=== PATIENT | male | born 1965 | race African-American/Black ===

== ENCOUNTER 2017-06-18 05:40 | Observation (INO) | payer BC ==
[2017-06-14 09:57] LABS: BASOPHILS 0.5 %; BASOPHILS ABSOLUTE 0.04 10/3/uL (0.0-0.16); EOSINOPHILS 0.9 %; EOSINOPHILS ABSOLUTE 0.07 10/3/uL (0.0-0.53); HEMATOCRIT 41.5 % (40.0-51.0); HEMOGLOBIN 13.8 g/dL (13.6-17.8); IMMATURE GRANULOCYTES 0.1 %; IMMATURE GRANULOCYTES ABSOLUTE 0.01 10/3/uL (0.0-0.11); LYMPHOCYTES 28.2 %; LYMPHOCYTES ABSOLUTE 2.17 10/3/uL (0.67-4.30); MANUAL DIFF NO %; MEAN CORPUS HGB CONC 33.3 g/dL (32.0-36.0); MEAN CORPUSCULAR HEMOGLOB 27.8 pg (26.0-34.0); MEAN CORPUSCULAR VOLUME 83.7 fL (80-100); MEAN PLATELET VOLUME 11.9 fL (9.2-13.0); MONOCYTES 6.9 %; MONOCYTES ABSOLUTE 0.53 10/3/uL (0.21-1.20); NEUTROPHILS 63.4 %; NEUTROPHILS ABSOLUTE 4.88 10/3/uL (2.02-8.40); PLATELET COUNT 181 10/3/uL (150-400); RBC DISTRIBUTION WIDTH 14.2 % (12.0-16.0); RED CELL COUNT 4.96 10/6/uL (4.7-6.1); WHITE BLOOD CELLS 7.7 10/3/uL (4.5-10.5)
[2017-06-14 10:20] LABS: A/G RATIO 1.2 (0.7-1.9); ALBUMIN 3.8 G/DL (3.5-5.0); ALKALINE PHOSPHATASE 51 U/L (45-117); BUN (BLOOD UREA NITROGEN) 11 MG/DL (6-23); CALCIUM, SERUM 9.6 MG/DL (8.5-10.4); CHLORIDE, SERUM 107 MMOL/L (96-112); CO2 (CARBON DIOXIDE) 33 MMOL/L (24-34); CREATININE 1.49 MG/DL (0.70-1.30); GFR AFRICAN AMERICAN 62 ML/MIN (>=60); GFR NON AFRICAN AMERICAN 53 ML/MIN (>=60); GLOBULIN 3.1 G/DL (2.5-4.1); GLUCOSE, SERUM 97 MG/DL (60-99); POTASSIUM, SERUM 3.7 MMOL/L (3.5-5.3); SGOT(AST) 11 U/L (5-40); SGPT(ALT) 29 U/L (5-65); SODIUM, SERUM 144 MMOL/L (135-148); TOTAL BILIRUBIN 0.3 MG/DL (0-1.2); TOTAL PROTEIN 6.9 G/DL (6.0-8.5)
[~2017-06-18] VITALS: Ht 185.4 cm; Wt 113.0 kg
--- NOTE | ~2017-06-18 | OP ---
Record Of Operation [facility] [address] [place]. [address] NAME: ANOOP HANEY JR : 63 STATUS : ADM Avril PAT#: [id number] AGE: 51 ADM/REG DATE : 06/18/17 MR#: [id number] REPORT SERV DATE: 06/18/17 DICTATED BY: DEMIAN SUAREZ DATE: 06/18/17 REPORT STATUS : Draft TRANSCRIBED BY: MODL DATE: 06/18/17 DATE OF PROCEDURE: 06/18/2017 PREOPERATIVE DIAGNOSIS: Achalasia. POSTOPERATIVE DIAGNOSIS: Achalasia. PROCEDURE: Laparoscopic Heller cardioesophageal myotomy, Ki anterior partial fundoplication, and esophagogastroscopy. RESIDENT SURGEONS: 1. Deric Bolanos MD. 2. Lise Nelson MD. ANESTHESIA: General. ESTIMATED BLOOD LOSS: 20 mL. DETAILS OF PROCEDURE: The patient arrived in the operating suite and was placed on the table in the supine position. General anesthesia obtained via an endotracheal tube. The patient was placed in modified lithotomy. The abdomen was prepped and draped in a sterile manner. 0.5% Marcaine with epinephrine was infiltrated over the supraumbilical left rectus muscle where a small incision was performed. A 10 mm blunt trocar was inserted under laparoscopic visualization. The peritoneal cavity insufflated with CO2 gas to 15 mmHg pressure. The patient was placed in reverse Trendelenburg. Additional trocars were inserted under laparoscopic visualization using blunt technique in the bilateral anterior axillary lines, left subxiphoid, right paramedian regions. The lateral segment of the left lobe of the liver was retracted anteriorly. Instruments were introduced. Dissection proceeded along the gastrohepatic omentum with the Harmonic dennis. The peritoneum along the medial edge of the right joce anteriorly was incised with the Harmonic dennis and extended across the esophageal hiatus anteriorly. There was no evidence of hiatal hernia. Dissection proceeded only from a 3 o'clock to 9 o'clock position anteriorly. No posterior dissection was undertaken. Once adequate dissection had been performed at the hiatus, attention was then turned to the greater curvature of the stomach. The gastrosplenic ligament and short gastric vessels contained therein were divided with the Harmonic dennis allowing the medial edge anteriorly of the joce on the left to be dissected. Again, no posterior dissection was performed. The anterior vagus nerve was then identified, encircled with a vessel loop, and retracted to the right. Dissection then proceeded using blunt dissection in the distal esophagus just above the GE junction bluntly and with the Harmonic dennis gaining access to the submucosal plane. The gastroscope was then introduced. There was no debris within the esophagus and no abnormality within the stomach. Fluid and air were then suctioned from the stomach. Using transillumination with the scope, submucosal dissection proceeded with Harmonic dennis cephalad for several centimeters and then with hook cautery distally onto the cardia of the stomach until the scope would pass without any effort whatsoever. The scope was then left in place and turned off. Partial anterior fundoplication was performed after the vessel loop was removed from the vagus nerve wrapping the fundus to the anterior Record Of Operation [address] [place]. [address] NAME: ANOOP HANEY JR : 63 STATUS : ADM Avril PAT#: [id number] AGE: 51 ADM/REG DATE : 06/18/17 MR#: [id number] REPORT SERV DATE: 06/18/17 DICTATED BY: DEMIAN SUAREZ DATE: 06/18/17 REPORT STATUS : Draft TRANSCRIBED BY: GERMAIN DATE: 06/18/17 right joce. Scope was then turned back on, and there was no twisting or any resistance in passing the scope from the distal esophagus into the stomach. The scope was then withdrawn. The liver retractor was removed. Trocars removed under laparoscopic visualization to ensure no bleeding. The peritoneal cavity desufflated. Skin closure performed at all sites with subcuticular 4-0 Monocryl. Sterile dressing applied, and the patient was awakened, extubated, and taken to PACU. /GERMAIN Demian Suarez M.D. / [id number] CC: Demian Suarez M.D.
[~2017-06-18 05:40] MED LIST: APRES50 PO; DIOVAN HCT320 MG/25 PO; EXCEDRIN MIGRA1 EAC1 PO; HALF81 PO; POTASSIUM GLUCO99 MG PO; PRILOSEC40 MG PO; SYN.15 PO; VITD PO
[2017-06-19] MEDS ORDERED: PCET PO (10:47)
== END 2017-06-19 11:47 | disposition home or self-care (01) ==
LOC: ENRESERVDT → ENRESERV → ENRESERVTM → SDC 05:40 → 4SO 09:33 → SDC/OF 09:33 → 4SO 10:24
PROVIDERS: Specialist
PROC: 0D844ZZ Division of Esophagogastric Junction, Percutaneous Endoscopic Approach (ICD-10-PCS; principal; 2017-06-18 06:45)
DX: K22.0 Achalasia of cardia (principal); E03.9 Hypothyroidism, unspecified; I10 Essential (primary) hypertension; G47.33 Obstructive sleep apnea (adult) (pediatric); Z79.899 Other long term (current) drug therapy; Z90.49 Acquired absence of other specified parts of digestive tract; Z88.5 Allergy status to narcotic agent; Z98.890 Other specified postprocedural states
CPT/HCPCS: 80053; 85025; 93005; 96372; 96374; 96375; 96376; A9270-GY; G0378; J0690; J1170; J2250; J2405; J2710; J3010